=== PATIENT | male | born 1955 | race Caucasian/White ===

== ENCOUNTER 2017-07-09 06:52 | Day surgery (SDC) | payer OTHER ==
[2017-07-09] MEDS ORDERED: Lactated Ringers 1,000 ML IV SCH (07:15)
[2017-07-09] MEDS ORDERED: Propofol 200 MG/20 ML SDV ONE (07:37)
[2017-07-09] MEDS ORDERED: fentaNYL 100 MCG/2 ML SDV ONE (07:37)
[2017-07-09] MEDS ORDERED: Midazolam 1 MG/ML 2 ML SDV ONE (07:37)
[2017-07-09 09:40] VITALS: BP 132/76
--- NOTE | 2017-07-09 11:07 | OR ---
DATE OF PROCEDURE: 07/09/2017 PREOPERATIVE DIAGNOSIS: History of adenomatous colon polyp. POSTOPERATIVE DIAGNOSES: 1. Diverticulosis. 2. Small colon polyp, 50 cm from the anal verge. 3. History of adenomatous colon polyp. PROCEDURES PERFORMED: Colonoscopy to the cecum with biopsy resection of polyp 50 cm from the anal verge. SURGEON: Florentino Garcia MD. ANESTHESIA: IV anesthesia with monitored anesthesia care. INDICATION: This 62-year-old white male is here for a colonoscopy to followup a colonoscopy done three years ago with polypectomy of an adenomatous polyp. I counseled him for the procedure, including risks and alternatives, and he gave his informed consent to proceed. DESCRIPTION OF PROCEDURE: The patient was placed in the left lateral decubitus position. IV anesthesia was administered by the Anesthesia Service. Time-out was held. A rectal exam was performed, which was unremarkable. The flexible video Olympus colonoscope was introduced through his anus, up his rectum, and out his colon all the way to the cecum. En route, we saw multiple left-sided diverticula. There was no bleeding or inflammation associated with any of them. Once the cecum was reached, the scope was slowly withdrawn, examining the mucosa throughout. No additional mucosal abnormalities were noted until we reached about 50 cm from the anal verge. Here, a small polyp was seen. It was grasped at its base with the biopsy forceps, amputated, and sent to pathology. The scope was withdrawn with no other lesions, other than the previously mentioned diverticula noted. The scope was retroflexed in the rectum with the distal rectum appearing unremarkable. The scope was straightened and removed. He tolerated the procedure well. Florentino Garcia MD /[id number] MTDD
== END 2017-07-09 09:47 | disposition home or self-care (01) ==
LOC: JP.SDS 06:52
PROVIDERS: ATTEND Surgery
DX: Z12.11 Encounter for screening for malignant neoplasm of colon (principal); D12.6 Benign neoplasm of colon, unspecified; K57.30 Diverticulosis of large intestine without perforation or abscess without bleeding; Z86.010 Personal history of colon polyps; Z88.0 Allergy status to penicillin
CPT/HCPCS: 45380; 88305; J2250; J2704; J3010; J7120

== ENCOUNTER 2020-07-19 06:27 | Day surgery (SDC) | payer OTHER ==
[2020-07-19] MEDS ORDERED: Sodium Chloride 0.9% 1,000 ML IV SCH (07:00)
[2020-07-19] MEDS ORDERED: Midazolam 1 MG/ML 2 ML SDV ONE (07:09)
[2020-07-19] MEDS ORDERED: Propofol 200 MG/20 ML SDV ONE (07:09)
[2020-07-19] MEDS ORDERED: fentaNYL 100 MCG/2 ML SDV ONE (07:09)
[2020-07-19 08:54] VITALS: BP 138/96; PULSE 75
--- NOTE | 2020-07-19 11:40 | OR ---
DATE OF PROCEDURE: 07/19/2020 SURGEON: Maulik Guzman MD PROCEDURE: Colonoscopy. FINDINGS: 1. Sigmoid colon polyp, approximately 5 mm, completely removed using cold biopsy forceps. 2. Diverticulosis, moderate to extensive, mostly concentrated in sigmoid colon without evidence of diverticulitis or bleeding. COMPLICATIONS: None. ROD DRAWER: None. PREOPERATIVE DIAGNOSES: History of precancerous polyps. POSTOPERATIVE DIAGNOSIS: History of precancerous polyps. RISKS: Risks, benefits, alternatives, and limitations including, but not limited to infection, bleeding, perforation were explained to the patient, who wished to proceed. We also discussed false positives and false negatives. PROCEDURE IN DETAIL: The patient was placed in left lateral decubitus position. Digital rectal exam was performed without abnormality. Scope was introduced and advanced atraumatically to the ileocecal valve. A photo was taken. The scope was brought back to the ascending, transverse, descending colon, and retroflexed. The aforementioned polyp was identified and completely removed with no abnormal bleeding after removal. Diverticulosis was described as extensive, concentrated in the sigmoid colon. No evidence of diverticulitis or bleeding. No abnormalities on retroflexion. No colitis. No old or new blood. Greater than 8 minutes spent removing the scope. The patient tolerated the procedure well. Maulik Guzman MD /[id number]
== END 2020-07-19 09:13 | disposition home or self-care (01) ==
LOC: JP.SDS 06:27
PROVIDERS: ATTEND Surgery
DX: D12.5 Benign neoplasm of sigmoid colon (principal); K57.30 Diverticulosis of large intestine without perforation or abscess without bleeding; Z88.0 Allergy status to penicillin
CPT/HCPCS: 45380; 88305; J2250; J2704; J3010; J7030

== ENCOUNTER 2020-11-16 15:13 | Emergency (ER) | payer OTHER ==
--- NOTE | 2020-11-16 15:47 | EDM.PDOC ---
ED HPI GENERAL MEDICAL PROBLEM - General Chief Complaint: General Stated Complaint: NUMBNESS IN BOTH ARMS Time Seen by Provider: 11/16/20 15:30 Source of Information: Reports: Patient, Family History Limitations: Reports: No Limitations - History of Present Illness INITIAL COMMENTS - FREE TEXT/NARRATIVE: 65-year-old male arrives to the emergency room with a pattern of reoccurring extremity paresthesias and pain, particularly when he is at rest. It started 2 or 3 months ago with burning and numbness in his feet, he used some topical anti-inflammatory which seemed to help the first time but the second time it seemed to flared up and he was miserable for the whole weekend. Since that time he has been struggling with migrating paresthesias of the upper extremities, lower extremities, areas of his trunk and intermittent blurred vision. He has had several primary care appointments as well as a neurology consult and is scheduled for an EMG next month. He had another bad night last night and did not think he could make it to his EMG and wanted to come in here for another opinion. No fevers or chills, no weight loss, denies headaches, no shortness of breath but he is having occasional palpitations and paroxysmal hypertension. He has recently been started on lisinopril and Neurontin which she does not take regularly because he does not feel it works. Duration: Chronic (Symptoms have been waxing and waning for about 3 months) Quality: Reports: Burning, Other (At times the symptoms are burning sensation, at other times its numbness) Worsens with: Reports: Rest (Seems to be worse at rest) Associated Symptoms: Reports: Malaise, Other (Palpitations and intermittent hypertension). Denies: Confusion, Chest Pain, Cough, Fever/Chills, Headaches, Nausea/Vomiting, Shortness of Breath - Related Data Allergies Allergy/AdvReac Type Severity Reaction Status Date / Time Penicillins Allergy Cannot Verified 07/09/17 07:21 Remember Home Meds: Home Meds Albuterol [Proventil Neb Soln] 2.5 mg PO Q4HR 07/15/20 [History] Diclofenac Sodium 50 mg PO TID 11/16/20 [History] Gabapentin [Neurontin] 100 mg PO BID 11/16/20 [History] lisinopriL [Lisinopril] 10 mg PO DAILY 11/16/20 [History] Past Medical History HEENT History: Reports: Impaired Vision Other HEENT History: wears glasses Gastrointestinal History: Reports: Colon Polyp, Diverticulosis Musculoskeletal History: Reports: Arthritis - Infectious Disease History Infectious Disease History: Reports: Chicken Pox, Hepatitis A, Measles, Mumps - Past Surgical History Other HEENT Surgeries/Procedures: nasal surgery GI Surgical History: Reports: Colonoscopy Musculoskeletal Surgical History: Reports: None Dermatological Surgical History: Reports: None Social & Family History - Family History Family Medical History: No Pertinent Family History - Tobacco Use Tobacco Use Status *Q: Never Tobacco User - Caffeine Use Caffeine Use: Reports: Coffee - Recreational Drug Use Recreational Drug Use: No ED ROS GENERAL - Review of Systems Review Of Systems: See Below Constitutional: Denies: Fever, Chills HEENT: Reports: Vision Change (Occasional blurred vision which is temporary, lasts about 20 minutes) Respiratory: Denies: Shortness of Breath Cardiovascular: Reports: Palpitations. Denies: Chest Pain Endocrine: Denies: Fatigue GI/Abdominal: Denies: Abdominal Pain, Nausea, Vomiting : Reports: No Symptoms Musculoskeletal: Reports: Other (Intense extremity pain especially the feet intermittent with the paresthesias) Skin: Denies: Rash (No rash over symptomatic areas) Psychiatric: Reports: Anxiety ED EXAM, GENERAL - Physical Exam Exam: See Below Exam Limited By: No Limitations General Appearance: Alert, Anxious Eye Exam: Bilateral Eye: Normal Inspection Head: Atraumatic Neck: Supple, Non-Tender Respiratory/Chest: Lungs Clear Cardiovascular: Regular Rate, Rhythm, Tachycardia. No: Extra Beats GI/Abdominal: Soft, Non-Tender Extremities: Normal Inspection, Other (I cannot reproduce any symptoms, document any objective numbness, see no rash, and his strength is equal) Neurological: Alert, Oriented, No Motor/Sensory Deficits Psychiatric: Anxious Skin Exam: Warm, Dry Course - Vital Signs Last Recorded V/S: Last Vital Signs Temp 97.7 F 11/16/20 15:24 Pulse 92 11/16/20 16:56 Resp 12 11/16/20 16:56 BP 183/126 H 11/16/20 16:56 Pulse Ox 98 11/16/20 16:56 - Orders/Labs/Meds Orders: Active Orders 24 hr Category Date Time Status EKG 12 Lead [EK] Routine Ther 11/16/20 16:37 Ordered - Re-Assessments/Exams Free Text/Narrative Re-Assessment/Exam: 11/17/20 11:52 Had a long discussion with his primary provider, all medical work-up by laboratory seems to have been ordered including thyroid studies, sed rate, electrolytes. He has not had any brain imaging to this point, so a CT of the head was ordered. CT was normal, patient was discharged with 6 doses of hydrocodone for extra pain control tonight and scheduled for an MRI of the brain and cervical spinal cord tomorrow without contrast. Results will be sent to Dr. Styles. Departure - Departure Time of Disposition: 17:13 Disposition: Home, Self-Care 01 Clinical Impression: Neuropathy - Discharge Information Instructions: Peripheral Neuropathy Referrals: Rivera Styles MD [Primary Care Provider] - Forms: ED Department Discharge Care Plan Goals: Use pain medication tonight as needed, continue your regular medications, avoid any extra salt intake and return tomorrow for your MRI studies as scheduled at 3:30 in the afternoon. Sepsis Event Note (ED) - Evaluation Sepsis Screening Result: No Definite Risk - My Orders Last 24 Hours: My Active Orders 11/16/20 16:37 EKG 12 Lead [EK] Routine - Assessment/Plan Last 24 Hours: My Active Orders 11/16/20 16:37 EKG 12 Lead [EK] Routine
--- NOTE | 2020-11-16 16:40 | CRLCT ---
Indication: Paresthesias, burning sensation in feet, hand numbness Technique: Nonenhanced axial CT imaging through the head. Sagittal and coronal reconstructions are provided. Comparison: None Findings: There is no intracranial hemorrhage, edema, or mass effect. There is normal attenuation of the brain parenchyma. The ventricles are normal in size. The basal cisterns are patent. The calvarium is intact. The visualized paranasal sinuses and mastoid air cells are aerated. Impression: No acute intracranial process. Please note that all CT scans at this facility use dose modulation, iterative reconstruction, and/or weight-based dosing when appropriate to reduce radiation dose to as low as reasonably achievable. Dictated by Angy Levy MD @ Nov 16 2020 4:33PM Signed by Dr. Angy Levy @ Nov 16 2020 4:37PM
[2020-11-16 16:57] VITALS: BP 183/126; PULSE 92
== END 2020-11-16 17:10 | disposition home or self-care (01) ==
LOC: JP.ED 15:13
DX: G62.9 Polyneuropathy, unspecified (principal); R00.0 Tachycardia, unspecified; Z88.0 Allergy status to penicillin
CPT/HCPCS: 70450; 93005; 99283; 99284-25